=== PATIENT | female | born 1985 | race Caucasian/White ===

== ENCOUNTER 2024-07-06 06:31 | Day surgery (SDC) | payer OTHER ==
[2024-07-06] MEDS: Lactated Ringers 1,000 ML IV SCH (06:58)
[2024-07-06] MEDS: Reglan 10 MG/2 ML IV ONE (06:58)
[2024-07-06 06:59] LABS: HCG URINE TEST NEGATIVE (NEGATIVE)
[2024-07-06] MEDS: Transderm Scop 1.5MG Patch TOP PRN (06:59)
[2024-07-06] MEDS: Pepcid 20 MG VIAL IV ONE (06:59)
[2024-07-06] MEDS: CEFAZOLIN 2 GM/100 ML NaCl 2 GM/100 ML IVPB IV SCH (06:59)
[2024-07-06 07:24] VITALS: RESP 16; O2SAT 100
[2024-07-06] MEDS ORDERED: SUBLIMAZE 100 MCG/2 ML ONE (08:02)
[2024-07-06] MEDS ORDERED: Sodium Chloride 0.9% 1000 ML 1,000 ML ONE (08:09)
[2024-07-06] MEDS ORDERED: Zofran 4 MG/2 ML VIAL ONE (08:20)
[2024-07-06] MEDS ORDERED: DIPRIVAN 200 MG/20 ML IV ONE (08:20)
[2024-07-06] MEDS ORDERED: Decadron 4 MG INJ ONE (08:20)
[2024-07-06] MEDS ORDERED: TORAdol 30 mg Injection ONE (08:34)
[2024-07-06 09:31] VITALS: BP 126/76; PULSE 67
[2024-07-06 10:02] VITALS: TEMP 97
--- NOTE | 2024-07-08 11:39 | OP ---
SURGERY DATE/TIME: 07/06/2024 [id number] PREOPERATIVE DIAGNOSIS: Abnormal uterine bleeding with postcoital bleeding. POSTOPERATIVE DIAGNOSIS: Abnormal uterine bleeding with postcoital bleeding. PROCEDURE: Hysteroscopy, dilation and curettage with NovaSure ablation. SURGEON: Parth Navas DO TRAVELING CRANE OPERATOR: Delaney Danielson. ANESTHESIA: General. ESTIMATED BLOOD LOSS: Minimal. COMPLICATIONS: None. DESCRIPTION OF PROCEDURE AND FINDINGS: The risks, benefits, indications, and alternatives of the procedure were reviewed with the patient prior to the procedure. Patient understood the risk of infection, bleeding, bowel injury, bladder injury, ureteral injury, uterine perforation, pelvic infection, and thromboembolic disorder associated with the surgery and desires to have the surgery as a possible means to alleviate her current medical condition. The patient also understood the possible risk of future associated with this procedure. At this point, patient was taken to the operating room, given general sedation, placed in the dorsal lithotomy position, prepped and draped in the usual sterile fashion. A weighted speculum was then placed in the patient's vagina, and the anterior lip of the cervix was grasped with a single-tooth tenaculum. Endocervical dilators were advanced through the endocervical region as a means to dilate the cervix and a 5 mm hysteroscope was then placed through the endocervical region where visualization revealed no gross abnormalities within the uterine cavity. From this point, the hysteroscope was removed and a curette was then placed into the fundus of the uterus and curettage was performed in all quadrants of the uterus, retrieving a mild to moderate amount of tissue. At this point, hemostasis was obtained. The NovaSure was then placed in through the endocervical region toward the fundal region, retracted approximately 1 cm with a length of 6.5 cm and a width of 3.6 cm. After placement, there was proper engagement and the machine was turned on for an ablative time of 1 minute and 1 second. After complete ablation, the instrument was then disengaged and removed from the uterine cavity without complication. At this point, again there was no bleeding that was noted from her cervix. From this point, all instruments were removed from the patient's vaginal region. The patient was then taken out of the dorsal lithotomy position, was taken out of anesthesia, was then taken to the recovery room in stable condition. All instruments and laps were accounted for x2.
== END 2024-07-06 10:08 | disposition home or self-care (01) ==
LOC: SDC 06:31
PROVIDERS: ATTEND Obstetrics & Gynecology
DX: N93.9 Abnormal uterine and vaginal bleeding, unspecified (principal); Z79.899 Other long term (current) drug therapy
CPT/HCPCS: 58563; 81025; 82947; J0690; J1100; J1885; J2405; J2704; J3010; A9270-GY